=== PATIENT | male | born 1960 | race Caucasian/White ===

== ENCOUNTER → 2016-11-14 | Outpatient (CLI) | payer BC | LOC: GMAL 14:49 | PROVIDERS: ATTEND Family Medicine | DX: Z00.00 Encounter for general adult medical examination without abnormal findings (principal) ==

== ENCOUNTER → 2017-07-20 | Outpatient (CLI) | payer BC ==
--- NOTE | 2017-07-20 16:51 | US ---
EXAM DESCRIPTION: Venous,Lower Extremity LT CLINICAL HISTORY: LOCALIZED EDEMA COMPARISON: None Available TECHNIQUE: Duplex images of the common femoral, superficial femoral, greater saphenous, popliteal, peroneal and posterior tibial veins of the left lower extremity were submitted. FINDINGS: All of the above-mentioned venous structures demonstrate normal spontaneous flow with respiratory phasicity and were fully compressible. There is subcutaneous edema within the left lower extremity. IMPRESSION: No sonographic evidence of acute DVT within the left lower extremity Subcutaneous edema within the left lower extremity. Electronically signed by: Bharat Santa MD 07/20/2017 4:50 PM CDT
== END | disposition home or self-care (01) ==
LOC: US 14:37
PROVIDERS: ATTEND Physician Assistant
DX: R60.0 Localized edema (principal)

== ENCOUNTER → 2017-07-20 | Outpatient (CLI) | payer BC | END | disposition home or self-care (01) | LOC: GMA 16:47 | PROVIDERS: ATTEND Physician Assistant | DX: R60.0 Localized edema (principal) ==

== ENCOUNTER → 2017-11-20 | Outpatient (CLI) | payer BC | LOC: GMAL 19:37 | PROVIDERS: ATTEND Family Medicine | DX: Z00.01 Encounter for general adult medical examination with abnormal findings (principal) ==